=== PATIENT | male | born 1965 | race Caucasian/White ===

== ENCOUNTER 2023-04-15 09:31 | Outpatient (REF) | payer MEDICAID, SELFPAY ==
[2023-04-15 11:26] LABS: MANUAL DIFF FLAG NO
[2023-04-15 11:28] LABS: Basophils Absolute Auto 0.1 X10*3/uL (0.0-0.2); Basophils Percent Auto 0.6 % (0-2); Eosinophils Absolute Auto 0.4 X10*3/uL (0.0-0.4); Eosinophils Percent Auto 3.4 % (0-4); Hematocrit 46.9 % (42.0-52.0); Imm Gran Abs Auto 0.14 X10*3/uL (0.00-0.03); Imm Gran Pct Auto 1.3 % (0.0-0.4); Lymphocytes Absolute Auto 2.4 X10*3/uL (1.2-4.9); Mean Corpuscular HGB Conc 34.1 g/dl (31.0-36.0); Mean Corpuscular Hemoglobin 31.4 pg (27.0-33.0); Mean Platelet Volume 10.9 fL (9.4-12.4); Monocytes Absolute Auto 0.8 X10*3/uL (0.1-1.2); Monocytes Percent Auto 7.3 % (2-11); Neutrophils Absolute Auto 6.8 x10*3/uL (2.0-8.3); Neutrophils Percent Auto 64.4 % (45-73); Platelet Count 194 X10*3/uL (160-400); Red Cell Distribution Width 12.8 % (11.0-16.0); White Blood Count 10.6 X10*3/uL (4.8-10.8)
[2023-04-15 11:32] LABS: INTERNATIONAL NORM RATIO 0.9 (0.9-1.1); Prothrombin Time 10.8 SEC (11.1-13.3)
[2023-04-15 11:34] LABS: Estimated Average Glucose 108 mg/dL; Hemoglobin A1c % 5.4 % (<6.0)
[2023-04-15 11:59] LABS: Alanine Aminotransferase 54 U/L (0-40); Albumin Level 4.6 g/dL (3.5-5.0); Alkaline Phosphatase 59 U/L (39-117); Anion Gap 11 (12-20); Aspartate Amino Transferase 36 U/L (5-37); Bilirubin Direct 0.1 mg/dL (0.0-0.5); Bilirubin Total 0.4 mg/dL (0.0-1.0); Blood Urea Nitrogen 18 mg/dL (9-16); Calcium 9.6 mg/dL (8.4-10.2); Carbon Dioxide 25 mmol/L (22-29); Chloride 104 mmol/L (96-108); Estimated Glomerular Filt Rate > 60; Glucose Random 101 mg/dL (60-115); Sodium 136 mmol/L (135-145); Total Protein 7.3 g/dL (6.5-8.0)
[2023-04-16 13:13] LABS: Alpha Fetoprotein 6.3 ng/mL (<6.1)
== END 2023-04-15 09:32 | disposition home or self-care (01) ==
LOC: HO.HHCL 09:31
PROVIDERS: Visit Provider Family Medicine
DX: R74.01 Elevation of levels of liver transaminase levels (principal); I10 Essential (primary) hypertension; R73.03 Prediabetes
CPT/HCPCS: 36415; 80048; 80076; 82105; 83036; 85025; 85610

== ENCOUNTER 2023-09-10 10:31 | Outpatient (REF) | payer MEDICAID, SELFPAY ==
[2023-09-10 11:50] LABS: MANUAL DIFF FLAG NO
[2023-09-10 11:52] LABS: Appearance Urine Clear; Color Urine Yellow; Glucose Urine UA Negative (Negative); Leukocyte Esterase Urine Trace (Negative); Nitrite Urine Negative (Negative); PH 5.5 (5.0-9.0); Specific Gravity - Urine 1.015 (1.005-1.025); UMIC TRIGGER UACC YES; Urine Blood Negative (Negative); Urine Ketones Negative (Negative); Urine Protein Negative (Neg-Trace)
[2023-09-10 12:00] LABS: Basophils Absolute Auto 0.1 X10*3/uL (0.0-0.2); Basophils Percent Auto 0.6 % (0-2); Eosinophils Absolute Auto 0.2 X10*3/uL (0.0-0.4); Eosinophils Percent Auto 2.1 % (0-4); Hematocrit 49.4 % (42.0-52.0); Hemoglobin 16.9 g/dl (14.0-18.0); Imm Gran Abs Auto 0.17 X10*3/uL (0.00-0.03); Imm Gran Pct Auto 1.6 % (0.0-0.4); Lymphocytes Percent Auto 18.6 % (20-40); Mean Corpuscular HGB Conc 34.2 g/dl (31.0-36.0); Mean Corpuscular Hemoglobin 31.6 pg (27.0-33.0); Mean Corpuscular Volume 92.5 fL (80.0-98.0); Mean Platelet Volume 11.3 fL (9.4-12.4); Monocytes Absolute Auto 0.6 X10*3/uL (0.1-1.2); Monocytes Percent Auto 5.6 % (2-11); Neutrophils Absolute Auto 7.6 x10*3/uL (2.0-8.3); Neutrophils Percent Auto 71.5 % (45-73); Platelet Count 190 X10*3/uL (160-400); Red Blood Count 5.34 X10*6/uL (4.60-5.80); Red Cell Distribution Width 12.8 % (11.0-16.0); White Blood Count 10.7 X10*3/uL (4.8-10.8)
[2023-09-10 12:06] LABS: Estimated Average Glucose 114 mg/dL; Hemoglobin A1c % 5.6 % (<6.0)
[2023-09-10 12:08] LABS: Bacteria Urine None Seen (None Seen); Hyaline Casts Urine 0-2 /LPF (0-2); RBC Urine 0-2 /HPF (0-2); UACC Culture Trigger YES
[2023-09-10 12:22] LABS: Alanine Aminotransferase 54 U/L (0-40); Albumin Level 4.5 g/dL (3.5-5.0); Alkaline Phosphatase 63 U/L (39-117); Anion Gap 10 (12-20); Aspartate Amino Transferase 32 U/L (5-37); Bilirubin Total 0.5 mg/dL (0.0-1.0); Blood Urea Nitrogen 13 mg/dL (9-16); Calcium 9.5 mg/dL (8.4-10.2); Carbon Dioxide 28 mmol/L (22-29); Chloride 102 mmol/L (96-108); Estimated Glomerular Filt Rate > 60; Glucose Random 102 mg/dL (60-115); Potassium 3.9 mmol/L (3.3-5.1); Sodium 136 mmol/L (135-145); Total Protein 7.3 g/dL (6.5-8.0)
[2023-09-10 12:32] LABS: Prostate Specific Antigen 0.56 ng/mL (<0.05-4.0)
[2023-09-10 12:41] LABS: Hepatitis A Antibody IgM 0.14 Index (0-0.79); ~Hepatitis A Antibody IgM Nonreactive (Nonreactive)
[2023-09-10 12:44] LABS: Syphilis Screen Nonreactive (Nonreactive)
[2023-09-10 12:46] LABS: HBS Num1 135.18 mIU/mL (0-7.99); HBc Num1 0.08 S/CO (0.00-0.79); HIV AB/AG Nonreactive (Nonreactive); HIV Num 1 0.05 S/CO (0.00-0.99); Hepatitis B Core Antibody Nonreactive (Nonreactive); ~HepC Num1 0.06 S/CO (0.00-0.79); ~Hepatitis B Surface Antibody REACTIVE (Nonreactive); ~Hepatitis C Antibody Nonreactive (Nonreactive)
[2023-09-10 13:54] LABS: CT PCR NOT DETECTED (Not Detect.); NG PCR NOT DETECTED (Not Detect.)
== END 2023-09-10 10:32 | disposition home or self-care (01) ==
LOC: HO.HHCL 10:31
PROVIDERS: Visit Provider Family Medicine
DX: R73.03 Prediabetes (principal); I10 Essential (primary) hypertension; K76.0 Fatty (change of) liver, not elsewhere classified; F10.90 Alcohol use, unspecified, uncomplicated; R30.0 Dysuria; R31.9 Hematuria, unspecified
CPT/HCPCS: 0353U; 80053; 81001; 83036; 84153; 85025; 86704; 86706; 86709; 86780; 86803; 87086; 87389

== ENCOUNTER 2024-08-10 09:25 | Outpatient (REF) | payer MEDICAID, SELFPAY ==
--- OUTSIDE RECORDS SUMMARY | 2024-08-10 10:00 | XMS_ITS | Encounter Summary ---
Author Organization [employer] Address [address] [facility] 7t [place] [address] Care Team Providers Care Cabinet Abrasive Sandblaster Name Role Phone Cassandra Stinson MD Primary Care Provider [phone] Encounter Details Date Type Department Care Team (Latest Contact Info) Description 07/02/2018 Abstract [facility] Dental, Provider, DDS Social History Tobacco Use Types Packs/Day Years Used Date Smoking Tobacco: Never Assessed Sex and Gender Information Value Date Recorded Sex Assigned at Male 01/27/2022 10:16 AM EDT Legal Sex Male 10:16 AM EDT Gender Identity Male 01/27/2022 10:16 AM EDT Sexual Orientation Straight 01/27/2022 10 :16 AM EDT documented as of this encounter Plan of Treatment Not on file documented as of this encounter Visit Diagnoses Not on filedocumented in this encounter Care Teams Cabinet Abrasive Sandblaster Relationship Specialty Start Date End Date Cassandra Stinson MD [address] [place] [phone] PCP - General Family Medicine 03/30/18 documented as of this encounter
--- OUTSIDE RECORDS SUMMARY | 2024-08-10 10:00 | XMS_ITS | Encounter Summary ---
Author Organization [employer] Address [address] [facility] 7t [place] [address] Care Team Providers Care Manager Dairy Name Role Phone Cassandra Stinson MD Primary Care Provider [phone] Reason for Visit * Reason Onset Date Comments CHART PREP 08/09/2024 Encounter Details Date Type Department Care Team ([facility] st Contact Info) Description 08/09/2024 Telephone [facility] MEDICINE [address] [place], [place] [phone] Cassandra Stinson MD [address] [place] [address] CHART PREP Social History Tobacco Use Types Packs/Day Years Used Date Smoking Tobacco: Every Day Cigarettes Passive Smoke Exposure: Current Smokeless Tobacco: Never Comments:socially Depression Answer Date Recorded Patient Health Questionnaire-9 Score 20 06/07/2024 Patient Health Questionnaire-9 Score 20 06/07/2024 Last PHQ-9: Questionnaire Data Not on file 0 06/07/2024 Housing Stability Answer Date Recorded What is your housing situation today? I have lani booth 12/21/[address] you li ve. Do you have problems with any of the following? None of the above 12/21/2023 Food Insecurity Answer Date Recorded Within the past 12 months, y ou worried that your food would run out before you got money to buy more: Never True 12/21/2023 Within the past 12 months,th e food you bought just didn't last and you didn't have enough money to get more: Never True Transportation Answer Date Recorded In the past 12 months, has l ack of transportation kept you from medical appts, meetings, work or from getting things needed for daily living? No 12/21/2023 Utilities Answer Date Recorded In the past 12 months, has t he electric, gas, oil or water company threatened to shut off services in your home? No 12/21/2023 Depression Answer Date Recorded Patient Health Questionnaire-2 Score 5 06/07/2024 Internet Access Answer Date Recorded Internet Access Q1 Yes 12/21/2023 Internet Access Q2 Not on file 12/21/2023 Sex and Gender Information Value Date Recorded Sex Assigned at Male 01/27/2022 10:16 AM EDT Legal Sex Male 10:16 AM EDT Gender Identity Male 01/27/2022 10:16 AM EDT Sexual Orientation Straight 01/27/2022 10 :16 AM EDT documented as of this encounter Miscellaneous Notes * Telephone Encounter - Arden Tapia [place] - 08/09/2024 12:27 PM EDT Chart Prep Labs: not done from 12/27/23 Images: not done from 09/10/23 Referrals: not applicable Vaccines due: not applicable Screenings: colonoscopy Overdue care gaps: SBIRT, SDOH, and Disability screen documented in this encounter Plan of Treatment Not on file documented as of this encounter Visit Diagnoses Not on filedocumented in this encounter Additional Health Concerns Assessment Noted Time PHQ-9 Depression Total Score: 20 025 9:43 AM EDT documented as of this encounter Care Teams Manager Dairy Relationship Specialty Start Date End Date Cassandra Stinson MD [address] [place] [phone] PCP - General Family Medicine 03/30/18 documented as of this encounter
--- OUTSIDE RECORDS SUMMARY | 2024-08-10 10:00 | XMS_ITS | Encounter Summary ---
Author Organization [employer] Address [address] [facility] 7t [place] [address] Care Team Providers Care Ripening Room Operator Name Role Phone Cassandra Stinson MD Primary Care Provider [phone] Encounter Details Date Type Department Care Team (Late st Contact Info) Description 04/10/2022 Abstract [facility] MEDICINE [address] [place], [place] [phone] Cassandra Stinson MD [address] [place], [place] [phone] Social History Tobacco Use Types Packs/Day Years Used Date Smoking Tobacco: Every Day Cigarettes Passive Smoke Exposure: Never Smokeless Tobacco: Never Comments:socially Sex and Gender Information Value Date Recorded Sex Assigned at Male 01/27/2022 10:16 AM EDT Legal Sex Male 10:16 AM EDT Gender Identity Male 01/27/2022 10:16 AM EDT Sexual Orientation Straight 01/27/2022 10 :16 AM EDT COVID-19 Exposure Response Date Recorded In the last 10 days, have yo u been in contact with someone who was confirmed or suspected to have Coronavirus/COVID-19? No / Unsure 04/10/2022 8:43 AM EST documented as of this encounter Plan of Treatment Not on file documented as of this encounter Procedures Procedure Name Priority Date/Time Associated Diagnosis Comments COLONOSCOPY Routine 07/23/2021 COLONOSCOPY Routine 07/23/2021 documented in this encounter Results * Colonoscopy (07/23/2021) Colonoscopy 07/23/21 Tubular adenoma Comment:Tubular adenoma us Historical Provider HEALTH MAINTENANCE Final Result * Hm Colonoscopy (07/23/2021) Colonoscopy 07/23/21 Comment:Tubular adenoma us Historical Provider HEALTH MAINTENANCE Final Result documented in this encounter Visit Diagnoses Not on filedocumented in this encounter Care Teams Ripening Room Operator Relationship Specialty Start Date End Date Cassandra Stinson MD [address] [place] [phone] PCP - General Family Medicine 03/30/18 documented as of this encounter
--- OUTSIDE RECORDS SUMMARY | 2024-08-10 10:00 | XMS_ITS | Encounter Summary ---
Author Organization [employer] Address [address] [facility] 7t [place] [address] Care Team Providers Care Integration Manager Name Role Phone Cassandra Stinson MD Primary Care Provider [phone] Reason for Visit * Reason Comments Med Refill Encounter Details Date Type Department Care Team ([facility] st Contact Info) Description 07/15/2023 Refill [facility] MEDICINE [address] [place], [place] [phone] Cyndee Carmen MD [address] [place], [place] [phone] Essential hypertension Social History Tobacco Use Types Packs/Day Years Used Date Smoking Tobacco: Some Days Cigarettes Passive Smoke Exposure: Current Smokeless Tobacco: Never Comments:socially Depression Answer Date Recorded Patient Health Questionnaire-9 Score 8 10/01/2022 Housing Stability Answer Date Recorded What is your housing situation today? I have lanijustin booth 01/04/[address] you li ve. Do you have problems with any of the following? No or not working smoke detectors;None of the above 01/04/2023 Food Insecurity Answer Date Recorded Within the past 12 months, y ou worried that your food would run out before you got money to buy more: Never True 01/15/2023 Within the past 12 months,th e food you bought just didn't last and you didn't have enough money to get more: Never True Transportation Answer Date Recorded In the past 12 months, has l ack of transportation kept you from medical appts, meetings, work or from getting things needed for daily living? No 01/15/2023 Utilities Answer Date Recorded In the past 12 months, has t he electric, gas, oil or water company threatened to shut off services in your home? No 01/15/2023 Depression Answer Date Recorded Patient Health Questionnaire-2 Score 2 10/01/2022 Sex and Gender Information Value Date Recorded Sex Assigned at Male 01/27/2022 10:16 AM EDT Legal Sex Male 10:16 AM EDT Gender Identity Male 01/27/2022 10:16 AM EDT Sexual Orientation Straight 01/27/2022 10 :16 AM EDT documented as of this encounter Plan of Treatment Not on file documented as of this encounter Visit Diagnoses Diagnosis Essential hypertension Unspecified essential hypertension documented in this encounter Additional Health Concerns Assessment Noted Time PHQ-9 Depression Total Score: 8 10/02/19 23 9:03 AM EDT documented as of this encounter Care Teams Integration Manager Relationship Specialty Start Date End Date Cassandra Stinson MD [address] [place] [address] PCP - General Family Medicine 03/30/18 documented as of this encounter
--- OUTSIDE RECORDS SUMMARY | 2024-08-10 10:00 | XMS_ITS | Encounter Summary ---
Author Organization [employer] Address [address] [facility] 7t [place] [address] Care Team Providers Care Coal Mill Operator Name Role Phone Cassandra Stinson MD Primary Care Provider [phone] Reason for Visit * Reason Comments Follow-up Encounter Details Date Type Department Care Team ([facility] st Contact Info) Description 08/10/2024 9:00 AM EDT Office Visit [facility] MEDICINE [address] [place], [place] [phone] Cassandra Stinson MD [address] [place] [address] Essential hypertension (Primary Dx); Dyslipidemia; Prediabetes; Metabolic dysfunction-associate d steatotic liver disease and increased alcohol intake (MetALD); Plantar fasciitis of right foot Social History Tobacco Use Types Packs/Day Years Used Date Smoking Tobacco: Every Day Cigarettes Passive Smoke Exposure: Current Smokeless Tobacco: Never Tobacco Cessation:Ready to Q uit: Not Asked; Counseling Given: Not Answered Comments:socially Depression Answer Date Recorded Patient Health [...] AM EDT documented as of this encounter Last Filed Vital Signs Vital Sign Reading Time Taken Comments Blood Pressure 129/82 08/10/2024 8:59 AM EDT Pulse 70 08/10/2024 8:59 AM EDT Temperature 36.4 ??C (97.5 ??F) 08/10/2024 8:59 AM ED T Respiratory Rate 20 08/10/2024 8:59 AM EDT Oxygen Saturation 98% 08/10/2024 8:59 AM EDT Inhaled Oxygen Concentration - - Weight 106 kg (233 lb 3.2 oz) 08/10/2024 8:59 AM EDT Height 180.3 cm (5' 11 ) 08/10/2024 8:59 AM EDT Body Mass Index 32.52 08/10/2024 8:59 AM EDT documented in this encounter Miscellaneous Notes * Assessment & Plan Note - Ni Smalls MA - 08/10/2024 8:42 AM EDTAssociated Problem(s): 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 Liver stiffness value 1.35 m/sec. Unlikely to have severe liver fibrosis or cirrhosis. -Continue surveillance -Work on risk factor management including lifestyle modifications and reduction in alcohol intake * Assessment & Plan Note - Ni Smalls MA - 08/10/2024 8:42 AM EDTAssociated Problem(s): Prediabetes -08/31/23 A1C 5.6% -Work on lifestyle modification. -Annual screening * Assessment & Plan Note - Ni Smalls MA - 08/10/2024 8:42 AM EDTAssociated Problem(s): Essential hypertension -Goal BP < 140/90 per JNC-8 and < 130/80 per ACC/AHA guideline (Treatment threshold >= 140/90 ) -Continue working on lifestyle modification and medication adherence. -Continue lisinopril 20 mg daily. -Reduce alcohol consumption. -Work on smoking cessation * Assessment & Plan Note - Ni Smalls MA - 08/10/2024 8:42 AM EDTAssociated Problem(s): Dyslipidemia -Last lipid profile: 07/30/22 TC 224 ; TG 108 ; HDL 74 ; LDL 128 -Current medication: Rosuvastatin 5 mg at bedtime, consider increasing the dose after next lab -Treatment history: Pravastatin (chosen low-potency due to transaminitis) -His transaminitis fluctuates, and is still within X3 UNL. Will continue to monitor LFT closely. -Continue lifestyle modification. * Assessment & Plan Note - Cassandra Stinson MD - 08/10/2024 4:42 AM EDTAssociated Problem(s): Plantar fasciitis of right foot - seen by [facility] provider on 03/04/24 - received betamethasone injection - continue stretching exercise and wearing comfortable shoes documented in this encounter Plan of Treatment Not on file documented as of this encounter Visit Diagnoses Diagnosis Essential hypertension- Primary Unspecified essential hypertension Dyslipidemia Other and unspecified hyperlipidemia Prediabetes Other abnormal glucose Metabolic dysfunction-associated steatotic liver disease and increased alcohol intake (MetALD) Plantar fasciitis of right foot documented in this encounter Additional Health Concerns Assessment Noted Time PHQ-9 Depression Total Score: 20 025 9:43 AM EDT documented as of this encounter Care Teams Coal Mill Operator Relationship Specialty Start Date End Date Cassandra Stinson MD [address] [place] [address] PCP - General Family Medicine 03/30/18 documented as of this encounter
--- OUTSIDE RECORDS SUMMARY | 2024-08-10 10:00 | XMS_ITS | Encounter Summary ---
Author Organization [employer] Address [address] [facility] [address] 7t [place] [address] Care Team Providers Care Systems Lead Name Role Phone Cassandra Stinson MD Primary Care Provider [phone] Encounter Details Date Type Department Care Team (Latest Contact Info) Description 08/10/2024 Travel Social History Tobacco Use Types Packs/Day Years [...] documented as of this encounter Care Teams Systems Lead Relationship Specialty Start Date End Date Cassandra Stinson MD [address] [place] [address] PCP - General Family Medicine 03/30/18 documented as of this encounter
--- OUTSIDE RECORDS SUMMARY | 2024-08-10 10:00 | XMS_ITS | Encounter Summary ---
Author Organization [employer] Address [address] [facility] [address] [place] [address] Care Team Providers Care Banquet Set Up Person Name Role Phone Cassandra Stinson MD Primary Care Provider [phone] Encounter Details Date Type Department Care Team ([facility] st Contact Info) Description 07/27/2023 Orders Only [facility] MEDICINE [address] [place] [address] Provider, MD Chong Social History Tobacco Use Types Packs/Day Years Used Date Smoking Tobacco: Some Days Cigarettes Passive Smoke Exposure: Current Smokeless Tobacco: Never Comments:socially Depression Answer Date Recorded Patient Health Questionnaire-9 Score 8 10/01/2022 Housing Stability Answer Date Recorded What is your housing situation today? I have lani booth 01/04/[address] you [...] Procedure Name Priority Date/Time Associated Diagnosis Comments HEPATITIS A IGM ANTIBODY Routine 09/10/2023 10:46 AM EDT CULTURE, URINE, ROUTINE Routine 09/10/2023 10:46 AM EDT HM COLONOSCOPY Routine 01/17/2016 11:34 AM EDT documented in this encounter Results * Culture, Urine, Routine (09/10/2023 10:46 AM EDT) Urine Urine specimen obtained by clean catch procedure / Unknown 09/10/2023 10:46 AM EDT 09/10/2023 1:01 PM EDT Comment:UACC Narrative [facility] - 09/11/2023 11:22 AM EDT Urine Culture No growth. Specimen Source: Urine clean catch us Cassandra Stinson MD LAB MICROBIOLOGY - GENERAL ORDER DELFINO Final Result Performing Organization Address City/[facility]/ZIP Co de Phone Number [facility] [address] [place] [phone] * Hepatitis A IgM Antibody (09/10/2023 10:46 AM EDT) Hepatitis A IgM Nonreactive Nonreactive [facility] Comment:IgM antibodies to GARCIA V not detected; does not exclude earlyacute or recovered HAV infection. 09/10/2023 10:4 6 AM EDT 09/10/2023 11:41 AM EDT us Cassandra Stinson MD LAB BLOOD ORDERABLES Final Resul t Performing Organization Address City/[facility]/ZIP Co de Phone Number [facility] [address] [place] [phone] * Hm Colonoscopy (01/17/2016 11:34 AM EDT) us Historical Provider HEALTH MAINTENANCE Final Result documented in this encounter Visit Diagnoses Not on filedocumented in this encounter Additional Health Concerns Assessment Noted Time PHQ-9 Depression Total Score: 8 10/02/19 23 9:03 AM EDT documented as of this encounter Care Teams Banquet Set Up Person Relationship Specialty Start Date End Date Cassandra Stinson MD [address] [place] [phone] PCP - General Family Medicine 03/30/18 documented as of this encounter
--- OUTSIDE RECORDS SUMMARY | 2024-08-10 10:00 | XMS_ITS | Clinical Summary ---
Author Organization [employer] Address [address] [place] [address] Care Team Providers Care Wafer Substrate Tester Name Role Phone Cassandra Stinson MD Primary Care Provider [phone] Allergies No known active allergies Medications QUEtiapine (SEROquel) 100 MG tablet TAKE 1 TABLET BY MOUTH AT BEDTIME 02/11/20 22 Active zolpidem (Ambien) 10 MG tablet TAKE 1 TABLET BY MOUTH AT BEDTIME 01/24/20 22 Active D3-1000 25 MCG (1000 UT) capsuleIndicatio ns:Vitamin D deficiency TAKE 1 CAPSULE (25 MCG) BY MOUTH IN THE MORNING. 90 capsule 3 01/20/20 23 Active Blood Pressure Monitor kitIndications:E ssential hypertension Check blood pressure once daily and as needed 1 kit 04/15/19 24 Active escitalopram (Lexapro) 10 MG tablet Take 10 mg by mouth Once per day. 08/19/19 24 Active traZODone (Desyrel) 100 MG tablet Take 100 mg by mouth at bedtime. 08/03/19 24 Active acetaminophen (Tylenol Extra Strength) 500 MG tablet Take 1 or 2 tablets every 8 hours as needed for pain 90 tablet 1 09/10/19 24 Active hydrocortisone 2.5 % creamIndications :Rash of both feet APPLY TO AFFECTED AREA TWICE A DAY TOPICALLY 28 g 1 09/14/19 24 Active cetirizine (ZyrTEC) 10 MG tablet TAKE 1 TABLET BY MOUTH EVERY DAY IN THE MORNING 90 tablet 3 09/15/19 24 Active escitalopram (Lexapro) 5 MG tablet Take 5 mg by mouth Once per day. 07/07/19 24 Active ciclopirox (Penlac) 8 % solution Apply topically at bedtime. 6 mL 1 12/21/19 24 Active fluticasone (Flonase) 50 MCG/ACT nasal spray USE 1-2 SPRAYS INTO EACH NOSTRIL IN THE MORNING. SHAKE GENTLY. BEFORE FIRST USE, PRIME PUMP. AFTER USE, CLEAN TIP AND REPLACE CAP. 48 mL 01/07/20 24 Active omeprazole (PriLOSEC) [address] capsuleIndicatio ns:Gastroesophag eal reflux disease, unspecified whether esophagitis present TAKE 1 CAPSULE BY MOUTH EVERY DAY NEEDED FOR HEARTBURN 90 capsule 3 05/11/19 25 Active rosuvastatin (Crestor) 5 MG tabletIndication s:Prediabetes TAKE 1 TABLET BY MOUTH EVERYDAY AT BEDTIME 90 tablet 3 06/07/19 25 Active diphenhydrAMINE (Banophen) 25 MG capsuleIndicatio ns:Rash of both feet TAKE 1 CAPSULE BY MOUTH IF NEEDED AT BEDTIME FOR ITCHING 30 capsule 1 06/08/19 25 Active terbinafine (LamISIL AT) 1 % creamIndications :Tinea pedis of right foot Apply topically 2 times daily. 42 g 06/08/19 25 Active lisinopril 20 MG tabletIndication s:Essential hypertension TAKE 1 TABLET BY MOUTH EVERY DAY IN THE MORNING 90 tablet 08/05/19 25 Active lisinopril 20 MG tabletIndication s:Essential hypertension TAKE 1 TABLET BY MOUTH EVERY DAY IN THE MORNING 90 tablet 05/09/19 25 025 Discontinued Active Problems Problem Noted Date Diagnosed Date Hematuria 09/10/2023 Dysuria 09/10/2023 Plantar fasciitis of right foot 09/10/2023 Assessment & Plan (08/10/2024 4:42 AM EDT): - seen by [facility] provider on 03/04/24 - received betamethasone injection - continue stretching exercise and wearing comfortable shoes Assessment & Plan (09/10/2023 10:18 AM EDT): -chronic -pt needs new referral to see his orthopedist -will place new referral -will prescribe acetaminophen Allergic rhinitis 10/01/2022 Assessment & Plan (10/01/2022 9:41 AM EDT): Allergy symptoms have worsened for this year -Rx Cetirizine and Flonase Tubular adenoma of colon 04/10/2022 Assessment & Plan (12/20/2023 6:48 PM EDT): GI, [facility] 07/23/21 Colonoscopy - 2 tubular adenomatous polyps and 1 hyperplastic polyp Assessment & Plan (04/10/2022 5:00 AM EST): 07/23/21 Colonoscopy - 2 tubular adenomatous polyps and 1 hyperplastic polyp Metabolic dysfunction-associ ated steatotic liver disease and increased alcohol intake (MetALD) 04/10/2022 Assessment & Plan (08/10/2024 8:42 AM EDT): -In a setting of alcohol use, yet lab is suggestive of fatty liver from other etiologies as well -FIB4 index 1.31, cirrhosis less likely -Last liver US / elastography on 10/21/23: diffusely echogenic parenchyma. Liver stiffness value 1.35 m/sec. Unlikely to have severe liver fibrosis or cirrhosis. -Continue surveillance -Work on risk factor management including lifestyle modifications and reduction in alcohol intake Assessment & Plan (12/20/2023 6:50 PM EDT): -In a setting of alcohol use, yet lab is suggestive of fatty liver from other etiologies as well -FIB4 index 1.31, cirrhosis less likely -Last liver US / elastography on 10/21/23: diffusely echogenic parenchyma. Liver stiffness value 1.35 m/sec. Unlikely to have severe liver fibrosis or cirrhosis. -Continue surveillance -Work on risk factor management including lifestyle modifications and reduction in alcohol intake Assessment & Plan (09/11/2023 10:10 AM EDT): -In a setting of alcohol use, yet lab is suggestive of fatty liver from other etiologies as well -ordered liver US -FIB4 index 1.31, cirrhosis less likely Assessment & Plan (04/19/2023 2:56 PM EST): -In a setting of alcohol use, yet lab is suggestive of fatty liver from other etiologies as well Assessment & Plan (10/01/2022 9:18 AM EDT): -In a setting of alcohol use, yet lab is suggestive of fatty liver from other etiologies as well Assessment & Plan (04/10/2022 5:01 AM EST): -In a setting of alcohol use, yet lab is suggestive of fatty liver from other etiologies as well Alcohol induced fatty liver 04/10/2022 Assessment & Plan (12/23/2023 10:47 PM EDT): -In a setting of alcohol use, yet lab is suggestive of fatty liver from other etiologies as well Assessment & Plan (04/19/2023 2:56 PM EST): -In a setting of alcohol use, yet lab is suggestive of fatty liver from other etiologies as well Prediabetes 04/10/2022 Assessment & Plan (08/10/2024 8:42 AM EDT): -08/31/23 A1C 5.6% -Work on lifestyle modification. -Annual screening Assessment & Plan (12/20/2023 6:51 PM EDT): -08/31/23 A1C 5.6% -Work on lifestyle modification. -Annual screening Assessment & Plan (09/10/2023 10:10 AM EDT): -04/15/23 A1C 5.4% -Work on lifestyle modification. -Annual screening Assessment & Plan (04/15/2023 4:47 AM EST): -07/30/22 A1C 5.5% -Work on lifestyle modification. -Annual screening Assessment & Plan (09/30/2022 6:44 PM EDT): -07/30/22 A1C 5.5% -Work on lifestyle modification. -Annual screening Assessment & Plan (04/10/2022 5:07 AM EST): -09/26/21 A1C 5.5% -Work on lifestyle modification. -Annual screening Chronic left shoulder pain 04/10/2022 Assessment & Plan (04/10/2022 5:08 AM EST): Followed by [facility], last seen in Oct 2021 Dx impingement syndrome Tx steroid injectioin Essential hypertension 04/08/2022 Assessment & Plan (08/10/2024 8:42 AM EDT): -Goal BP < 140/90 per JNC-8 and < 130/80 per ACC/AHA guideline (Treatment threshold >= 140/90 ) -Continue working on lifestyle modification and medication adherence. -Continue lisinopril 20 mg daily. -Reduce alcohol consumption. -Work on smoking cessation Assessment & Plan (12/20/2023 6:38 PM EDT): -Goal BP < 140/90 per JNC-8 and < 130/80 per ACC/AHA guideline (Treatment threshold >= 140/90 ) -Continue working on lifestyle modification and medication adherence. -Continue lisinopril 20 mg daily. -Reduce alcohol consumption. -Work on smoking cessation Assessment & Plan (09/10/2023 8:42 AM EDT): -Goal BP < 140/90 per JNC-8 and < 130/80 per ACC/AHA guideline (Treatment threshold >= 140/90 ) -Continue working on lifestyle modification and medication adherence. -Continue lisinopril 20 mg daily. -Reduce alcohol consumption. -Work on smoking cessation -Follow-up in 4 mo. Assessment & Plan (04/19/2023 2:58 PM EST): -Goal BP < 140/90 per JNC-8 and < 130/80 per ACC/AHA guideline (Treatment threshold >= 140/90 ) -Continue working on lifestyle modification and medication adherence. -Continue lisinopril 20 mg daily. -Reduce alcohol consumption. -Work on smoking cessation -Follow-up in 4 mo. Assessment & Plan (10/01/2022 9:18 AM EDT): -Goal BP < 140/90 per JNC-8 and < 130/80 per ACC/AHA guideline (Treatment threshold >= 140/90 ) -Continue working on lifestyle modification and medication adherence. -Continue lisinopril 20 mg daily. -Reduce alcohol consumption. -Stop smoking. -Follow-up in 4 mo. Assessment & Plan (04/10/2022 5:06 AM EST): -Goal BP < 140/90 per JNC-8 and < 130/80 per ACC/AHA guideline (Treatment threshold >= 140/90 ) -Continue working on lifestyle modification and medication adherence. -Continue lisinopril 20 mg daily. -Reduce alcohol consumption. -Stop smoking. -Follow-up in 4 mo. Gastroesophageal reflux disease 01/05/2017 Hemorrhoids 04/07/2016 Hyperplastic colon polyp 04/07/2016 Alcohol use disorder 03/22/2015 Assessment & Plan (12/23/2023 10:47 PM EDT): -Encouraged to work on reducing alcohol consumption -Discussed about harm reduction -Discussed about AA meeting. Assessment & Plan (09/10/2023 8:42 AM EDT): -Encouraged to work on reducing alcohol consumption -Discussed about harm reduction -Discussed about AA meeting. Assessment & Plan (04/19/2023 2:57 PM EST): -Encouraged to work on reducing alcohol consumption -Discussed about harm reduction -Discussed about AA meeting. Assessment & Plan (10/01/2022 9:40 AM EDT): -Encouraged to work on abstinence from alcoholic beverages. -Encouraged to go to AA meeting. -Pt is not drinking everyday, consumes two - 24 oz cans every other day or so Arthritis of right acromioclavicular joint 12/10 Depression 12/11/2011 Assessment & Plan (12/27/2023 11:32 AM EDT): -[facility] -Currently followed by TELEVISION TECHNICIAN -Continue current meds: Seroquel, Ambien, Trazodone -Patient was able to contract his safety today Assessment & Plan (09/10/2023 8:42 AM EDT): -Previously followed by Dr. Jean Baptiste at [facility] -Currently followed by [facility] current meds: Seroquel, Ambien, Trazodone -Patient was able to contract his safety today Assessment & Plan (04/19/2023 2:59 PM EST): -Previously followed by Dr. Jean Baptiste at [facility] -Currently followed by [facility] current meds: Seroquel, Ambien, Trazodone -Patient was able to contract his safety today Assessment & Plan (10/01/2022 9:41 AM EDT): -Continue current BHS -Continue current meds: Seroquel, Ambien, Trazodone -Patient was able to contract his safety today, no firearms or weapon in the house Dyslipidemia 12/11/2011 Assessment & Plan (08/10/2024 8:42 AM EDT): -Last lipid profile: 07/30/22 TC 224 ; TG 108 ; HDL 74 ; LDL 128 -Current medication: Rosuvastatin 5 mg at bedtime, consider increasing the dose after next lab -Treatment history: Pravastatin (chosen low-potency due to transaminitis) -His transaminitis fluctuates, and is still within X3 UNL. Will continue to monitor LFT closely. -Continue lifestyle modification. Assessment & Plan (12/27/2023 11:36 AM EDT): -Last lipid profile: 07/30/22 TC 224 ; TG 108 ; HDL 74 ; LDL 128 -Current medication: Rosuvastatin 5 mg at bedtime, consider increasing the dose after next lab -Treatment history: Pravastatin (chosen low-potency due to transaminitis) -His transaminitis fluctuates, and is still within X3 UNL. Will continue to monitor LFT closely. -Continue lifestyle modification. Assessment & Plan (09/10/2023 8:43 AM EDT): -Last lipid profile: 07/30/22 TC 224 ; TG 108 ; HDL 74 ; LDL 128 -Current medication: Rosuvastatin 5 mg qhs -According to 2013 ACC/AHA guideline, 10-year ASCVD risk is 10% and moderate to high-intensity statin therapy is recommended. According to ATPIII guideline, pt's goal LDL is < 130. Due to his transaminitis and problematic alcohol use, pravastatin was discontinued. After discussing benefit and harm of statin therapy, he chose to restart pravastatin in Mar 2016. His transaminitis fluctuates, and is still within X3 UNL. Will continue to monitor LFT closely. Emphasized the importance of lifestyle modification. Assessment & Plan (04/15/2023 4:48 AM EST): -Last lipid profile: 07/30/22 TC 224 ; TG 108 ; HDL 74 ; LDL 128 -Current medication: Rosuvastatin 5 mg qhs -According to 2013 ACC/AHA guideline, 10-year ASCVD risk is 10% and moderate to high-intensity statin therapy is recommended. According to ATPIII guideline, pt's goal LDL is < 130. Due to his transaminitis and problematic alcohol use, pravastatin was discontinued. After discussing benefit and harm of statin therapy, he chose to restart pravastatin in Mar 2016. His transaminitis fluctuates, and is still within X3 UNL. Will continue to monitor LFT closely. Emphasized the importance of lifestyle modification. Assessment & Plan (10/01/2022 9:16 AM EDT): -Last lipid profile: 07/30/22 TC 224 ; TG 108 ; HDL 74 ; LDL 128 -Current medication: Rosuvastatin 5 mg qhs -According to 2013 ACC/AHA guideline, 10-year ASCVD risk is 10% and moderate to high-intensity statin therapy is recommended. According to ATPIII guideline, pt's goal LDL is < 130. Due to his transaminitis and problematic alcohol use, pravastatin was discontinued. After discussing benefit and harm of statin therapy, he chose to restart pravastatin in Mar 2016. His transaminitis fluctuates, and is still within X3 UNL. Will continue to monitor LFT closely. Emphasized the importance of lifestyle modification. Assessment & Plan (04/10/2022 5:04 AM EST): -Last lipid profile: 09/26/21 TC 218; TG 109; HDL 71; LDL 125 -Current medication: Rosuvastatin 5 mg qhs -According to 2013 ACC/AHA guideline, 10-year ASCVD risk is 10% and moderate to high-intensity statin therapy is recommended. According to ATPIII guideline, pt's goal LDL is < 130. Due to his transaminitis and problematic alcohol use, pravastatin was discontinued. After discussing benefit and harm of statin therapy, he chose to restart pravastatin in Mar 2016. His transaminitis fluctuates, and is still within X3 UNL. Will continue to monitor LFT closely. Emphasized the importance of lifestyle modification. Transaminitis 12/11/2011 Assessment & Plan (04/15/2023 4:47 AM EST): -Labs: 07/30/22 - AST 28 ; ALT 40 ; PSA 0.54 ng/mL -Last US on 11/25/21 showed hepatic steatosis, no solitary or suspicious lesion -Hx excessive alcohol consumption. -Work on abstinence, or at least reduction. -Monitor LFT closely. -Previously on statin, but discontinued due to elevated LFT. Restarted with rosuvastatin at lower dose -Will update Ultrasound Assessment & Plan (10/01/2022 9:21 AM EDT): -Labs: 07/30/22 - AST 28 ; ALT 40 ; PSA 0.54 ng/mL -Last US on 11/25/21 showed hepatic steatosis, no solitary or suspicious lesion -Hx excessive alcohol consumption. -Work on abstinence, or at least reduction. -Monitor LFT closely. -Previously on statin, but discontinued due to elevated LFT. Restarted with rosuvastatin at lower dose -Will update Ultrasound Assessment & Plan (04/10/2022 5:04 AM EST): 09/26/21 AST 45; ALT 57 Last US on 11/25/21 showed hepatic steatosis, no solitary or suspicious lesion Hx excessive alcohol consumption. Work on abstinence, or at least reduction. Monitor LFT closely. Previously on statin, but discontinued due to elevated LFT. Restarted with rosuvastatin at lower dose Tremor 12/11/2011 Neck pain 10/15/2011 Resolved Problems Problem Noted Date Diagnosed Date Resolved Date Impaired fasting glucose 07/12/201402/2023 Encounters Date Type Department Care Team Description 08/10/2024 9:00 AM EDT Office Visit [facility] [address] [place] [address] Cassandra Stinson MD Essential hypertension (Primary Dx); Dyslipidemia; Prediabetes; Metabolic dysfunction-associa hawa steatotic liver disease and increased alcohol intake (MetALD); Plantar fasciitis of right foot 08/10/2024 Travel 08/09/2024 Telephone [facility] [address] [place] [address] Cassandra Stinson MD CHART PREP 08/04/2024 Refill [facility] [address] [place] [address] Cassandra Stinson MD Essential hypertension 06/10/2024 Population Health Risk Score [facility] ([facility]) Department [address] [place] [phone] Provider, Population Health Generic 06/07/2024 9:30 AM EDT Office Visit [facility] [address] [place] [address] Gloria Rios ANP Essential hypertension (Primary Dx); Rash of both feet; Tinea pedis of right foot 06/07/2024 Travel 06/06/2024 Refill [facility] [address] [place] [address] Cassandra Stinson MD Prediabetes from Last 3 Months Immunizations Immunization Administration Dates Next Due Hep A, Adult 12/21/2023,10/01/2022 Hep B, adult 08/28/2006,04/09/2006,03/05/2006 Influenza Injectable Quadriv alant Preservative Free IIV4 MDCK 02/05/2017 Influenza injectable quadriv alent IIV4 with preservative 04/10/2022,12/28/2017 Influenza injectable quadriv alent preservative free 04/15/2023,01/23/2021,12/19/2019,11/18 Influenza, IIV3, injectable 01/16/2014,1 ,12/28/2009,01/21,01/15/2009,02/24/2006 Influenza, Split (incl. amrita fied surface antigen) 02/17/2013,12/11/2011 Influenza, seasonal, injecta ble, preservative free 12/21/2023 Moderna Covid-19 Vaccine 12+ 09/26/2021, 03/27/2021,08/02/2020,07/05 Moderna Covid-19 Vaccine 6+ Bivalent 04/10/2022 Pfizer Covid-19 Vaccine 12+ 12/21/2023, Pneumococcal Conjugate PCV 20 10/01/2022 Pneumococcal Polysaccharide PPSV23 07/26/2007 TD (adult), 2 Lf tetanus tox oid, preservative free, adsorbed 04/10/2022,02/24/2006 Tdap 08/06/2011 Zoster, Recombinant 03/27/2021,01/23/2021 Social History Tobacco Use Types Packs/Day Years [...] Orientation Straight 01/27/2022 10 :16 AM EDT Last Filed Vital Signs Vital Sign Reading [...] Mass Index 32.52 08/10/2024 8:59 AM EDT Plan of Treatment Health Maintenance Due Date Last Done Comments CT Colonography 1965 FIT DNA/Cologuard 1965 FIT 1965 FOBT 1965 Sigmoidoscopy 1965 Diabetes: Hemoglobin A1C 09/09/2024 024, 04/15/2023, 07/30/2022, Additional history exists Depression Screening 06/07/2025 06/07/2024, 06/08/19 Alcohol/Substance Use Screening 08/10/2025 08/10/2024 SDOH Screening 08/10/2025 08/10/2024 Tobacco Screening 08/10/2025 08/10/2024 Lipid Panel 07/31/2027 07/30/2022, 06, 02/14/2021, Additional history exists Colonoscopy 07/24/2031 07/23/2021, 06/29, 01/17/2016 Colorectal Cancer Screening 07/24/2031 DTaP/Tdap/Td Vaccines (3 - Td or Tdap) 04/10/2032 04/10/2022, 08/06/2011, 02/24/2006 RSV Patients and Patients Aged 60 years or older (1 - 1-dose 75+ series) 2040 Hepatitis B Vaccines Completed 08/28/2006, 04/09/2006, 03/05/2006 Zoster Vaccines Completed 03/27/2021, 01/23/2021 Pneumococcal Vaccine: 50+ Years Completed 10/01/2022, 07/26/2007 HIV Screening Completed 09/10/2023, 05/09/2019 Hepatitis C Screening Completed 09/10/2023 , 05/09/2019, 05/09/2019 COVID-19 Vaccine Completed 12/21/2023, , 04/10/2022, Additional history exists Hepatitis A Vaccines Completed 12/21/2023, 10/02/19 Influenza Vaccine Completed 12/21/2023, , 04/10/2022, Additional history exists HIB Vaccines Aged Out No longer eligi ble based on patient's age to complete this topic HPV Vaccines Aged Out No longer eligi ble based on patient's age to complete this topic IPV Vaccines Aged Out No longer eligi ble based on patient's age to complete this topic Meningococcal B Vaccine Aged Out No l onger eligible based on patient's age to complete this topic Meningococcal Vaccine Aged Out No jessica renuka eligible based on patient's age to complete this topic RSV under 20 months Aged Out No longe r eligible based on patient's age to complete this topic Rotavirus Vaccines Aged Out No longer eligible based on patient's age to complete this topic Procedures Procedure Name Priority Date/Time Associated Diagnosis Comments HEPATITIS C AB W/REFL TO HCV RNA, QN, PCR Routine 09/10/2023 10:46 AM EDT Dysuria HIV 1/2 ANTIGEN/ANTIBODY, FOURTH GENERATION W/RFL Routine 09/10/2023 10:46 AM EDT Dysuria HEMOGLOBIN A1C Routine 09/10/2023 10:46 AM EDT Prediabetes LIPID PANEL, STANDARD Routine 07/30/2022 9:16 AM EDT Dyslipidemia HM COLONOSCOPY Routine 07/23/2021 from Last 3 Months or Most Recently Relevant to Health Maintenance Results * Hepatitis C Antibody with Reflex to HCV, RNA, Quantitative, Real-Time PCR (09/10/2023 10:46 AM EDT) Hepatitis C Antibody Nonreactive Nonreactive [facility] Comment:Antibodies to HCV no t detected; does not exclude early acuteHCV infection. Blood Venous blood specimen / Unknown 09/10/2023 10:46 AM EDT 09/10/2023 11:41 AM EDT us Cassandra Stinson MD LAB BLOOD ORDERABLES Final Resul t [facility] [address] [place] [phone] * HIV-1/2 Antigen and Antibodies, Fourth Generation, with Reflexes (09/10/2023 10:46 AM EDT) HIV AB/AG Nonreactive Nonreactive [facility] Comment:HIV-1 p24 Ag and/or HIV-1/HIV-2 Ab not detected.A test result that is nonreactive does not exclude thepossibility of exposure to or infection with HIV-1 and/orHIV-2. Nonreactive results in this assay for individualswith prior exposure to HIV-1 and/or HIV-2 may be due toantigen and antibody levels that are below the limit ofdetection of this assay.The [employer] HIV Ag/Ab Combo assay result andsupplemental assay results should be interpreted inconjunction with the patient's clinical presentation,history and other laboratory results. If the results areinconsistent with clinical evidence, additional testing issuggested to confirm the result. Blood Venous blood specimen / Unknown 09/10/2023 10:46 AM EDT 09/10/2023 11:41 AM EDT us Cassandra Stinson MD LAB BLOOD ORDERABLES Final Resul t Performing Organization Address City/[facility]/ZIP Co de Phone Number [facility] [address] [place] [phone] * Hemoglobin A1c (09/10/2023 10:46 AM EDT) Hemoglobin A1c 5.6 <6.0 % [facility] Comment:Hemoglobin A1C Refer ence Range Adults: 4.8 - 6.0 % Non diabetic: < 6.0 % Goal: < 7.0 %Additional Action Suggested: > 8.0 %Note: Hemoglobin A1c results are invalid for patients with abnormal amounts of HbF. Blood transfusions may impact the HbA1c concentration in the patient sample. Estimated Average Glucose 114 mg/dL [facility] Comment:eAG = Estimated ave rage glucose which is %A1C expressed asaverage glucose, using the formula of the F3E-RzvyoiyDkzxyfy Glucose study (ADAG), Diabetes Care, Vol.31,#8,Oct. 2007 Blood Venous blood specimen / Unknown 09/10/2023 10:46 AM EDT 09/10/2023 11:41 AM EDT Cassandra Stinson MD LAB BLOOD ORDERABLES Final Resul t Performing Organization Address [facility] Co de Phone Number [facility] [address] [place] [phone] * (ABNORMAL) Lipid Panel, Standard (07/30/2022 9:16 AM EDT) Cholesterol, Total 224(H) <200 mg/dL [employer] [facility] [employer] HDL Cholesterol 74 > OR = 40 mg/dL [employer] [facility] [employer] Triglycerides 108 <150 mg/dL [employer] [facility] [employer] LDL Cholesterol 128(H) mg/dL (calc) [facility] [employer] Comment: Reference range: <100 Desirable range <100 mg/dL for primary prevention; ?? <70 mg/dL for patients with CHD or diabetic patients with > or = 2 CHD risk factors. LDL-C is now calculated using the Lay calculation, which is a validated novel method providing better accuracy than the Friedewald equation in the estimation of LDL-C. Luis SS et al. JELENA. 2013;310(19): 2960-9675 (http://education.neoSurgical/faq/EXB227) Chol/HDLC Ratio 3.0 <5.0 (calc) [employer] [facility] [employer] Non-HDL Cholesterol 150(H) <130 mg/dL (calc) [employer] [facility] [employer] Comment: For patients with diabetes plus 1 major ASCVD risk factor, treating to a non-HDL-C goal of <100 mg/dL (LDL-C of <70 mg/dL) is considered a therapeutic option. Blood Venous blood specimen / Unknown 07/30/2022 9:16 AM EDT 07/30/2022 9:17 AM EDT Narrative [facility] - 07/30/2022 10:28 PM EDT FASTING:YES FASTING: YES Cassandra Stinson MD LAB BLOOD ORDERABLES Final Resul t [facility] [address], [place] [address] [employer] [facility] [employer] [address] [place] [address] * Colonoscopy (07/23/2021) [facility] Signature Colonoscopy 07/23/21 Comment:Tubular adenoma Historical Provider HEALTH MAINTENANCE Final Result from Last 3 Months or Most Recently Relevant to Health Maintenance Insurance STANDARD Care Teams Wafer Substrate Tester Relationship Specialty Start Date End Date Cassandra Stinson MD [address] [place] [id number] PCP - General Family Medicine 03/30/18
[2024-08-10 10:53] LABS: MANUAL DIFF FLAG NO
[2024-08-10 11:05] LABS: Basophils Absolute Auto 0.1 X10*3/uL (0.0-0.2); Basophils Percent Auto 0.7 % (0-2); Eosinophils Absolute Auto 0.4 X10*3/uL (0.0-0.4); Eosinophils Percent Auto 4.1 % (0-4); Hematocrit 46.4 % (42.0-52.0); Hemoglobin 15.8 g/dl (14.0-18.0); Imm Gran Abs Auto 0.13 X10*3/uL (0.00-0.03); Imm Gran Pct Auto 1.5 % (0.0-0.4); Lymphocytes Absolute Auto 2.1 X10*3/uL (1.2-4.9); Lymphocytes Percent Auto 23.2 % (20-40); Mean Corpuscular HGB Conc 34.1 g/dl (31.0-36.0); Mean Corpuscular Hemoglobin 31.5 pg (27.0-33.0); Mean Corpuscular Volume 92.6 fL (80.0-98.0); Mean Platelet Volume 11.2 fL (9.4-12.4); Monocytes Absolute Auto 0.8 X10*3/uL (0.1-1.2); Monocytes Percent Auto 8.5 % (2-11); Neutrophils Absolute Auto 5.5 x10*3/uL (2.0-8.3); Platelet Count 182 X10*3/uL (160-400); Red Blood Count 5.01 X10*6/uL (4.60-5.80); Red Cell Distribution Width 13.3 % (11.0-16.0); White Blood Count 8.9 X10*3/uL (4.8-10.8)
[2024-08-10 11:15] LABS: Estimated Average Glucose 114 mg/dL; Hemoglobin A1C 155.2406 umol/L; Hemoglobin A1c % 5.6 % (<6.0)
[2024-08-10 11:29] LABS: Microalbum/Creatinine Ratio Ur 5.5 ug/mg cr (<30)
[2024-08-10 11:41] LABS: Alanine Aminotransferase 52 U/L (0-40); Albumin Level 4.4 g/dL (3.5-5.0); Alkaline Phosphatase 57 U/L (39-117); Anion Gap 14 (12-20); Aspartate Amino Transferase 35 U/L (5-37); Bilirubin Total 0.4 mg/dL (0.0-1.0); Blood Urea Nitrogen 18 mg/dL (9-16); Calcium 8.9 mg/dL (8.4-10.2); Carbon Dioxide 26 mmol/L (22-29); Chloride 103 mmol/L (96-108); Cholesterol 211 mg/dL (<200); Estimated Glomerular Filt Rate > 60; Glucose Random 97 mg/dL (60-115); HDL Cholesterol 52 mg/dL (>40); LDL Cholesterol Calculated 141 mg/dL (<100); Potassium 3.8 mmol/L (3.3-5.1); Sodium 139 mmol/L (135-145); Total Protein 7.1 g/dL (6.5-8.0); Triglycerides 91 mg/dL (<150)
[2024-08-10 12:00] LABS: Reflex LDLD? No
== END 2024-08-10 09:26 | disposition home or self-care (01) ==
LOC: HO.HHCL 09:25
PROVIDERS: Visit Provider Family Medicine
DX: I10 Essential (primary) hypertension (principal); R73.03 Prediabetes; K76.0 Fatty (change of) liver, not elsewhere classified; F10.90 Alcohol use, unspecified, uncomplicated; E78.5 Hyperlipidemia, unspecified
CPT/HCPCS: 36415; 80053; 80061; 82043; 82570; 83036; 85025